=== PATIENT | male | born 1960 | race Caucasian/White ===

== ENCOUNTER 2023-05-08 16:43 | Inpatient (IN) | payer BC, OTHER ==
[~2023-05-08] VITALS: Ht 172.7 cm; Wt 103.4 kg
[2023-05-08 16:50] VITALS: BP 150/87; PULSE 69; RESP 16; TEMP 98; O2SAT 99
[2023-05-08 17:34] LABS: BASOPHILS % (AUTO) 0.2 % (0.0-2.0); HEMOGLOBIN 15.1 g/dL (12.0-18.0); LYMPHOCYTES # (AUTO) 1.4 K/uL (2.0-11.5); LYMPHOCYTES % (AUTO) 8.9 % (20.5-51.1); MEAN CORPUSCULAR HEMOGLOBIN 30 pg (27-31); MEAN CORPUSCULAR HGB CONC 34 g/dL (33-37); MEAN CORPUSCULAR VOLUME 88.4 fL (80-94); MONOCYTES # (AUTO) 0.4 K/uL (0.8-1.0); MONOCYTES % (AUTO) 2.6 % (1.7-9.3); NEUTROPHILS # (AUTO) 13.5 K/uL (1.8-7.7); NEUTROPHILS % (AUTO) 88.3 % (42.2-75.2); PLATELET COUNT (AUTO) 280 K/uL (140-450); RED BLOOD CELL COUNT(AUTO) 5.09 MIL/uL (4.20-6.10); RED CELL DISTRIBUTION WIDTH 13.6 % (11.6-13.7); WHITE BLOOD COUNT (AUTO) 15.3 K/uL (4.8-10.8)
[2023-05-08] MEDS ORDERED: MORPHINE SULFATE 4 MG/ML SYR IVP ONE (17:50)
[2023-05-08 18:00] VITALS: O2SAT 97
[2023-05-08 18:07] LABS: ALBUMIN 3.9 g/dL (3.4-5.0); ANION GAP 14.5 (8-16); CALCIUM 8.6 mg/dL (8.5-10.1); CARBON DIOXIDE 24.2 mmol/L (21-32); CREATININE 1.3 mg/dL (0.6-1.3); POTASSIUM 3.7 mmol/L (3.5-5.1); TOTAL BILIRUBIN 0.7 mg/dL (0.0-1.0); TOTAL PROTEIN, SERUM 7.6 g/dL (6.4-8.2)
[2023-05-08] MEDS ORDERED: fentaNYL citrate 0.05 MG/ML VIAL IVP ONE (18:45)
[2023-05-08] MEDS ORDERED: LORazepam 1 MG TAB PO PRN (19:40)
[2023-05-08] MEDS ORDERED: ACETAMINOPHEN 325 MG TAB PO PRN (19:40)
[2023-05-08] MEDS ORDERED: ZOLPIDEM 5 MG TAB PO PRN (19:40)
[2023-05-08] MEDS: SODIUM CHLORIDE FLUSH 10 ML SYR IVF SCH (21:00)
[2023-05-08] MEDS ORDERED: PREG150C PO (21:24)
[2023-05-08] MEDS ORDERED: OMEP40EC23 PO ×2 (21:24→21:45)
[2023-05-08] MEDS ORDERED: [UNRECOGNIZED DRUG - CODE] PO (21:24)
[2023-05-08] MEDS ORDERED: TERA1CAP7 PO (21:24)
[2023-05-08] MEDS ORDERED: ACYC400T14 PO (21:24)
[2023-05-08] MEDS ORDERED: METO50TE2 PO (21:24)
[2023-05-08] MEDS ORDERED: TAMS0.4C96 PO ×2 (21:24→21:45)
[2023-05-08] MEDS ORDERED: OXYC40TA3 PO (21:45)
[2023-05-08] MEDS ORDERED: BACL10TA4 PO (21:45)
[2023-05-08] MEDS ORDERED: HYDR2TAB6 PO (21:45)
[2023-05-08] MEDS ORDERED: ASPI-1822 PO (21:45)
[2023-05-08] MEDS ORDERED: GABA400C PO (21:45)
[2023-05-08] MEDS ORDERED: LORA10TA19 PO (21:45)
[2023-05-08] MEDS ORDERED: LID5T TP (21:45)
[2023-05-08] MEDS ORDERED: METO25TE71 PO (21:45)
[2023-05-08] MEDS ORDERED: RAME8TAB16 PO (21:45)
[2023-05-08 22:10] VITALS: PULSE 96; RESP 19; O2SAT 95
[2023-05-08] MEDS: HYDROmorphone 2 MG TAB PO PRN (23:47)
[2023-05-09] VITALS (7 sets, daily range): BP systolic 128–150; BP diastolic 64–91; PULSE 45–79; RESP 15–18; TEMP 97–98; O2SAT 95–100
[2023-05-09] MEDS: SODIUM CHLORIDE FLUSH 10 ML SYR IVF SCH ×3 (05:04→21:38)
[2023-05-09] MEDS: HYDROmorphone 2 MG TAB PO PRN ×2 (05:05→12:15)
[2023-05-09 07:53] LABS: ANION GAP 12.7 (8-16); CALCIUM 8.2 mg/dL (8.5-10.1); CARBON DIOXIDE 27.2 mmol/L (21-32); CREATININE 1.1 mg/dL (0.6-1.3); POTASSIUM 3.9 mmol/L (3.5-5.1)
[2023-05-09] MEDS: NITROGLYCERIN 0.4 MG TAB SL PRN ×10 (08:49→09:49)
[2023-05-09] MEDS: PANTOPRAZOLE 40 MG TABEC PO SCH ×2 (08:55→09:00)
[2023-05-09] MEDS: PREGABALIN 50 MG CAP PO SCH ×2 (08:55→08:59)
[2023-05-09] MEDS: TAMSULOSIN 0.4 MG CAP PO SCH ×2 (08:56→09:00)
[2023-05-09] MEDS: TERAZOSIN 1 MG CAP PO SCH ×2 (08:56→09:00)
[2023-05-09] MEDS ORDERED: NON-FORMULARY ITEM (Omeprazole* (Prilosec*) 40 MG) PO SCH (09:00)
[2023-05-09] MEDS: METOPROLOL SUCCINATE 50 MG TABER PO SCH (09:00)
[2023-05-09] MEDS: MORPHINE SULFATE 2 MG/ML SYR IVP PRN (13:34)
[2023-05-09 17:14] LABS: AMPHETAMINE, URINE NEGATIVE ng/ml (NEG <=1000); BARBITURATE, URINE NEGATIVE ng/ml (NEG <=200); BENZODIAZEPINE, URINE POSITIVE ng/mL (NEG <=200); CANNABINOID, URINE NEGATIVE ng/mL (NEG <=50); COCAINE, URINE NEGATIVE ng/mL (NEG <=300); OPIATE, URINE POSITIVE ng/mL (NEG <=2000); PHENCYCLIDINE SCREEN,URINE NEGATIVE ng/mL (NEG <=25)
[2023-05-10] VITALS: BP 131/67; PULSE 59; PULSE 80; RESP 18; TEMP 97.5; O2SAT 100
[2023-05-10 04:00] VITALS: BP 127/69; PULSE 48; PULSE 82; RESP 18; TEMP 97.6; O2SAT 100
[2023-05-10] MEDS: SODIUM CHLORIDE FLUSH 10 ML SYR IVF SCH ×3 (04:53→20:15)
[2023-05-10] MEDS ORDERED: TERA1CAP7 PO (07:31)
[2023-05-10 08:00] VITALS: BP 147/97; PULSE 48; RESP 18; TEMP 96.7; O2SAT 99
[2023-05-10] MEDS: METOPROLOL SUCCINATE 50 MG TABER PO SCH (09:00)
[2023-05-10] MEDS: PREGABALIN 50 MG CAP PO SCH (09:26)
[2023-05-10] MEDS: TAMSULOSIN 0.4 MG CAP PO SCH (09:26)
[2023-05-10] MEDS: TERAZOSIN 1 MG CAP PO SCH (09:27)
[2023-05-10] MEDS: PANTOPRAZOLE 40 MG TABEC PO SCH (09:27)
[2023-05-10 12:00] VITALS: BP 138/83; PULSE 55; RESP 18; TEMP 97.6; O2SAT 98
[2023-05-10 16:00] VITALS: BP 145/91; PULSE 66; RESP 18; TEMP 97.4; O2SAT 97
[2023-05-10 20:00] VITALS: BP 155/82; PULSE 65; RESP 19; TEMP 97.8; O2SAT 98
[2023-05-10] MEDS: MORPHINE SULFATE 2 MG/ML SYR IVP PRN (22:17)
[2023-05-11] VITALS: BP 154/97; PULSE 64; RESP 18; TEMP 97.5; O2SAT 95
[2023-05-11] MEDS: HYDROmorphone 2 MG TAB PO PRN (01:54)
[2023-05-11 04:00] VITALS: BP 154/94; PULSE 58; PULSE 67; RESP 18; TEMP 97.6; O2SAT 95
[2023-05-11] MEDS: SODIUM CHLORIDE FLUSH 10 ML SYR IVF SCH ×2 (05:00→12:54)
[2023-05-11 08:00] VITALS: BP 157/97; PULSE 59; PULSE 61; RESP 18; TEMP 97.8; O2SAT 98
[2023-05-11] MEDS: PANTOPRAZOLE 40 MG TABEC PO SCH (09:07)
[2023-05-11] MEDS: PREGABALIN 50 MG CAP PO SCH (09:07)
[2023-05-11] MEDS: TAMSULOSIN 0.4 MG CAP PO SCH (09:08)
[2023-05-11] MEDS: TERAZOSIN 1 MG CAP PO SCH (09:09)
[2023-05-11] MEDS: METOPROLOL SUCCINATE 50 MG TABER PO SCH (09:09)
[2023-05-11 12:00] VITALS: BP 162/95; PULSE 75; RESP 20; TEMP 97.3; O2SAT 95
[2023-05-11 16:00] VITALS: BP 155/95; PULSE 75; RESP 20; TEMP 97.9; O2SAT 98
[2023-05-11] MEDS: MORPHINE SULFATE 2 MG/ML SYR IVP PRN (16:16)
[2023-05-11] MEDS ORDERED: hydrALAZINE 25 MG TAB PO PRN ×2 (17:05→17:25)
[2023-05-11] MEDS ORDERED: hydrALAZINE 25 MG TAB ONE (17:11)
== END 2023-05-11 19:40 | disposition short-term general hospital (02) | DRG 313 ==
LOC: MED 16:43 → OBSVTOIN 19:39 → MMU 19:39 → MTU 21:19
PROVIDERS: ADMIT Internal Medicine; ATTEND Internal Medicine
DX: R07.89 Other chest pain (principal); I25.10 Atherosclerotic heart disease of native coronary artery without angina pectoris; N40.0 Benign prostatic hyperplasia without lower urinary tract symptoms; I11.9 Hypertensive heart disease without heart failure; M50.30 Other cervical disc degeneration, unspecified cervical region; Z98.1 Arthrodesis status; Z79.899 Other long term (current) drug therapy; Z95.5 Presence of coronary angioplasty implant and graft
CPT/HCPCS: 36415; 71045; 71275; 80048; 80053; 80305; 83735; 83880; 84484; 85025; 87081; 93005; 96374; 97112; 97116; 99285; J2270; J3010; Q0092; Q9967